=== PATIENT | male | born 1990 | race Two or more races ===

== ENCOUNTER 2020-01-01 15:09 | Emergency (ER) | payer MEDICAID ==
[~2020-01-01] VITALS: Ht 175.3 cm; Wt 79.4 kg
--- NOTE | 2020-01-01 15:10 | NUR ---
PT BIB SELF C/O MIGRAINE AND VOMITING. PT IS AAOX4, NOT IN RESPIRATORY DISTRESS, V/S STABLE, KEPT RESTED AND COMFORTABLE. WILL CONTINUE TO MONITOR.
--- NOTE | 2020-01-01 15:30 | NUR ---
PT SEEN AND EXAMINED BY .
--- NOTE | 2020-01-01 15:40 | NUR ---
IV LINE ESTABLISHED BLOOD DRAWN AND SENT TO LAB.
[2020-01-01 15:47] LABS: BASOPHILS % (AUTO) 0.6 % (0.0-2.0); HEMATOCRIT 47 % (39-51); HEMOGLOBIN 15.8 g/dL (13.5-17.5); LYMPHOCYTES % (AUTO) 42.1 % (20.0-44.0); MEAN CORPUSCULAR HGB CONC 34 g/dl (31.0-36.0); MEAN CORPUSCULAR VOLUME 90 fL (80-96); MONOCYTES # (AUTO) 0.5 /CMM (0.1-1.30); NEUTROPHILS # (AUTO) 3.3 /CMM (1.8-8.9); NEUTROPHILS % (AUTO) 46.3 % (43.0-81.0); PLATELET COUNT (AUTO) 264 /CMM (150-450); RED BLOOD CELL COUNT(AUTO) 5.24 MIL/uL (4.5-6.0); WHITE BLOOD COUNT (AUTO) 7.2 K/uL (4.3-11.0)
--- NOTE | 2020-01-01 15:50 | NUR ---
Note genoveva in ED - 01/01/20 at 1636 by CRISTIAN PT BIB SELF C/O MIGRAINE AND VOMITING. PT IS AAOX4, NOT IN RESPIRATORY DISTRESS, V/S STABLE, KEPT RESTED AND COMFORTABLE. WILL CONTINUE TO MONITOR.
[2020-01-01 15:53] LABS: CALCIUM, SERUM 9.4 mg/dL (8.5-10.1); POTASSIUM 3.7 mmol/L (3.5-5.1)
[2020-01-01] MEDS ORDERED: ACETAMINOPHEN ES 500 MG TABLET ONE (15:56)
[2020-01-01] MEDS ORDERED: IOHEXOL-350 100 ML VIAL IV ONE (16:02)
--- NOTE | 2020-01-01 16:03 | NUR ---
PT IS WHEELED TO CT SCAN VIA WHEELCHAIR.
[2020-01-01] MEDS ORDERED: ONDANSETRON HCL/PF 4 MG/2 ML VIAL ONE (16:25)
[2020-01-01] MEDS ORDERED: ACETAMINOPHEN ES 500 MG TABLET PO ONE (16:30)
[2020-01-01] MEDS ORDERED: ONDANSETRON HCL/PF 4 MG/2 ML VIAL IV ONE (16:30)
--- NOTE | 2020-01-01 16:54 | NUR ---
SPOKED TO [facility] FROM [facility] FOR PT'S [facility] AND [facility]INIC[facility].
[2020-01-01 16:59] VITALS: BP 138/76
[2020-01-01] MEDS ORDERED: LEVETIRACETAM (500MG) 500 MG in IV NS 0.9% 100 ML IV ONE (17:00)
--- NOTE | 2020-01-01 17:00 | NUR ---
CALLED PHARMACY FOR CATALINA
--- NOTE | 2020-01-01 17:20 | NUR ---
GOT A CALL FROM [facility]. PT WILL BE GOING TO ROOM 4514-1. NUMBER FOR REPORT. [phone] ext. [phone]. [facility] ETA 1 HOUR.
--- NOTE | 2020-01-01 17:50 | NUR ---
REPORT GIVEN TO SELENA SAHU OF [facility] FOR [facility].
== END 2020-01-01 17:53 | disposition short-term general hospital (02) ==
LOC: ER 15:09
DX: I60.9 Nontraumatic subarachnoid hemorrhage, unspecified (principal); R51 Headache; R11.10 Vomiting, unspecified; R42 Dizziness and giddiness
CPT/HCPCS: 36415; 70450; 70496; 70498; 80048; 85025; 85730; 93005; 96365; 96375; 99291; J1953; J2405; J7030; Q9967